=== PATIENT | male | born 1980 | race Asian ===

== ENCOUNTER 2018-05-13 07:01 | Emergency (ER) | payer OTHER ==
[~2018-05-13] VITALS: Ht 182.9 cm; Wt 101.2 kg
[2018-05-13 07:05] VITALS: Ht 182.9 cm; Wt 101.2 kg
[2018-05-13 09:30] LABS: BASOPHIL % 0.4 % (0-2); PLATELET COUNT 247 x10^3mcL (130-400)
[2018-05-13 09:35] LABS: CALCIUM 8.9 mg/dL (8.5-10.1); CARBON DIOXIDE 31.5 mmol/L (21-32); CHLORIDE SERUM 104 mmol/L (98-107); GFR1 > 60 mL/min; GLUCOSE SERUM 109 mg/dL (74-106); POTASSIUM SERUM 4.6 mmol/L (3.5-5.1); SODIUM SERUM 139 mmol/L (136-145)
[2018-05-13 09:39] LABS: ALBUMIN 3.9 g/dL (3.4-5.0); ALKALINE PHOSPHATASE 66 U/L (46-116); ALT/SGPT 35 U/L (16-63); AST/SGOT 22 U/L (15-37); BILIRUBIN TOTAL 0.8 mg/dL (0.20-1.00); TOTAL PROTEIN, SERUM 7.6 g/dL (6.4-8.2)
[2018-05-13 09:51] LABS: C REACTIVE PROTEIN < 0.2 mg/dL (<=0.9)
[2018-05-13 10:44] LABS: ERYTHROCYTE SED RATE 3 mm/hr (0-15)
[2018-05-13 11:42] VITALS: BP 120/60
== END 2018-05-13 11:42 | disposition home or self-care (01) ==
LOC: ED 07:01
PROVIDERS: Specialist
DX: J02.9 Acute pharyngitis, unspecified (principal)
CPT/HCPCS: J0561; J1100; J1885; J2405; J7030; Q9967